=== PATIENT | female | born 1975 | race Caucasian/White ===

== ENCOUNTER 2017-02-01 09:29 | Outpatient (CLI) | payer BC ==
[~2017-02-01] VITALS: Ht 154.9 cm; Wt 82.1 kg
[~2017-02-01 09:29] MED LIST changes: -ACET-2650 PO; -AMPH15TA PO; -BUPR150T7 PO; -CHOL500050 PO; -CYCL10TA9 PO; -DULO60CA58 PO; -HYDR-3812 PO; -LEVO150T6 PO; -LORA-404 PO; -ONDN4T PO; -OXYC-471 PO
[2017-02-01 09:40] VITALS: BP 128/88
[2017-02-01] MEDS ORDERED: LEVO150T6 PO (12:30)
[2017-02-01] MEDS ORDERED: OXYC-471 PO (12:30)
[2017-02-01] MEDS ORDERED: CHOL500050 PO (12:36)
[2017-02-01] MEDS ORDERED: DULO60CA58 PO (12:36)
[2017-02-01] MEDS ORDERED: BUPR150T7 PO (12:36)
[2017-02-01] MEDS ORDERED: CYCL10TA9 PO (12:36)
[2017-02-01] MEDS ORDERED: AMPH15TA PO (12:36)
[2017-02-01] MEDS ORDERED: LORA-404 PO (12:36)
[2017-02-01] MEDS ORDERED: ACET-2650 PO (12:36)
[2017-02-01] MEDS ORDERED: ONDN4T PO (12:36)
== END 2017-02-01 10:20 | disposition home or self-care (01) ==
LOC: PREOP 09:29
PROVIDERS: ATTEND Podiatrist Foot & Ankle Surgery
DX: Z01.818 Encounter for other preprocedural examination (principal); Z11.2 Encounter for screening for other bacterial diseases; M76.71 Peroneal tendinitis, right leg
CPT/HCPCS: 87081

== ENCOUNTER → 2017-02-01 | Outpatient (CLI) | payer BC ==
[~2017-02-01] MED LIST: ACET-2650 PO; ALBU8.5H4 INH; AMPH15TA PO; ASCORBIC ACID PO; BIOTIN PO; BUPR150T7 PO; CELE100C PO; CHOL100055 PO; CHOL500044 PO; CHOL500050 PO; CYCL10TA9 PO; DIPH25CA79 PO; DULO60CA58 PO; FOLI1TAB24 PO; HYDR-3062 PO; HYDR-3812 PO; HYDR15SO8 PO; LEVO125T6 PO; LEVO150T6 PO; LIDO700A6 TP; LISD70CA3 PO; LORA-404 PO; MAGN100T6 PO; METH2.5T PO; MONT10TA21 PO; MULT-974 PO; NF-MAG64T PO; NITR0.4T39 SL; ONDN4T PO; OXYC-197 PO; OXYC-464 PO; OXYC-471 PO; POLY17PO6 PO; POTA10CA43 PO; PROZASIN PO; SUMA100T2 PO; TRAM50TA2 PO; TYLENOL ARTHRITIS PO; VENL150C PO; [UNRECOGNIZED DRUG - OTHER] PO
[2017-02-01 10:20] LABS: BASOPHILS % (AUTO) 0 % (0-10); EOSINOPHILS # (AUTO) 0.1 10^3/uL (0.0-0.3); EOSINOPHILS % (AUTO) 1 % (0-10); LYMPHOCYTES # (AUTO) 1.7 X 10^3 (1.0-4.0); LYMPHOCYTES % (AUTO) 26 % (12-44); MEAN CORPUSCULAR HEMOGLOBIN 32 PG (25-34); MEAN CORPUSCULAR HGB CONC 33 G/DL (32-36); MEAN CORPUSCULAR VOLUME 95 FL (80-99); MEAN PLATELET VOLUME 8.3 FL (7.4-10.4); MONOCYTES # (AUTO) 1.1 X 10^3 (0.0-1.0); MONOCYTES % (AUTO) 17 % (0-12); NEUTROPHILS # (AUTO) 3.6 X 10^3 (1.8-7.8); NEUTROPHILS % (AUTO) 56 % (42-75); PLATELET COUNT 447 10^3/uL (130-400); RED BLOOD COUNT 4.19 10^6/uL (4.35-5.85); RED CELL DISTRIBUTION WIDTH 13.1 % (10.0-14.5); WHITE BLOOD COUNT 6.4 10^3/uL (4.3-11.0)
[2017-02-01 10:38] LABS: CREATININE SERUM 0.74 MG/DL (0.60-1.30)
== END ==
LOC: LAB 09:58
PROVIDERS: ATTEND Specialist
DX: M35.9 Systemic involvement of connective tissue, unspecified (principal)
CPT/HCPCS: 36415; 82565; 84460; 85025

== ENCOUNTER 2017-02-24 09:06 | Day surgery (SDC) | payer BC ==
[~2017-02-24] VITALS: Ht 154.9 cm; Wt 82.1 kg
[~2017-02-24 09:06] MED LIST changes: +ACET-2650 PO; +AMPH15TA PO; +BUPR150T7 PO; +CHOL500050 PO; +CYCL10TA9 PO; +DULO60CA58 PO; +LACTATED RINGERS 1,000 ML IV PRN; +LEVO150T6 PO; +LORA-404 PO; +ONDN4T PO; +OXYC-471 PO
[2017-02-24] MEDS ORDERED: proPOfol 200 MG/20 ML (DIPRIVAN) VIAL IV ONE (09:20)
[2017-02-24] MEDS ORDERED: LACTATED RINGERS 1,000 ML IV ONE (09:20)
[2017-02-24] MEDS ORDERED: SEVOFLURANE (ULTANE) 15 ML INHAL SOLN ONE ×6 (09:20→11:08)
[2017-02-24] MEDS ORDERED: LIDOCAINE PF 2% 10 ML (XYLOCAINE) AMP ONE (09:20)
[2017-02-24] MEDS ORDERED: MIDAZOLAM 2 MG/2 ML (VERSED) VIAL ONE (09:21)
[2017-02-24] MEDS ORDERED: fentaNYL INJECTION 100 MCG/2 ML AMP ONE (09:21)
[2017-02-24 09:30] VITALS: BP 140/87
[2017-02-24] MEDS ORDERED: FAMOTIDINE 20MG/2ML IV (PEPCID) ONE (09:33)
[2017-02-24] MEDS ORDERED: ONDANSETRON 4 MG/2 ML (SDV) Z0FRAN ONE ×2 (09:33→11:09)
[2017-02-24] MEDS ORDERED: CLINDAMYCIN 600 MG/50 ML IVPB 50 ML IV ONE ×2 (09:35→09:45)
[2017-02-24] MEDS ORDERED: BUPIVACAINE 0.5% 30 ML (SENSORCAINE) VIAL ONE (09:39)
[2017-02-24] MEDS ORDERED: LIDOCAINE 1% INJ 20 ML (XYLOCAINE) VIAL ONE (09:40)
--- NOTE | 2017-02-24 09:41 | Progress Note-Pre Operative ---
Pre-Operative Progress Note H&P Reviewed The H&P was reviewed, patient examined and no changes noted. Date H&P Reviewed: February 24, 2017 Time H&P Reviewed: 09:40 Pre-Operative Diagnosis: Peroneal tendonosis, right MELISSA BREAUX DPM February 24, 2017 9:41 am
[2017-02-24] MEDS ORDERED: SCOPOLAMINE 1.5 MG (TRANSDERM-SCOP) PATCH TOP ONE (09:45)
[2017-02-24] MEDS ORDERED: FAMOTIDINE 20MG/2ML IV (PEPCID) IV ONE (09:45)
[2017-02-24] MEDS ORDERED: ONDANSETRON 4 MG/2 ML (SDV) Z0FRAN IV ONE (09:45)
[2017-02-24] MEDS ORDERED: DEXAMETHASONE PF 10 MG/ML (DECADRON) VIAL ONE ×2 (10:34→11:09)
[2017-02-24] MEDS ORDERED: SUCCINYLCHOLINE INJ 100 MG/5 ML SYR ONE (11:09)
[2017-02-24] MEDS ORDERED: LACTATED RINGERS 1,000 ML IV SCH (11:19)
--- NOTE | 2017-02-24 11:19 | Progress Note-Post Operative ---
Post-Operative Progess Note Surgeon (s)/Bartender Manager (s) Surgeon MELISSA BREAUX DPM Bartender Manager: none Pre-Operative Diagnosis Peroneal tendonosis, right Post-Operative Diagnosis Same Post-Op Procedure Note Date of Procedure: February 24, 2017 Name of Procedure Performed: Exploration of peroneal tendons right Description of the Procedure: opened tendon sheath, right Findings of the Procedure Minimal tenosynovitis, no tendon rent Anesthesia Type General Estimated blood loss (mL): Minimal Specimen(s) collected/removed None MELISSA BREAUX DPM February 24, 2017 11:19 am
[2017-02-24] MEDS ORDERED: morphine INJ 10 MG/ML 1ML (SYR OR VIAL) IVP PRN (11:30)
[2017-02-24] MEDS ORDERED: MEPERIDINE (DEMEROL) INJ 50 MG/ML IVP PRN (11:30)
[2017-02-24] MEDS ORDERED: ONDANSETRON 4 MG/2 ML (SDV) Z0FRAN IVP PRN ×2 (11:30)
[2017-02-24] MEDS ORDERED: HYDROcodone/APAP 5 MG/325 MG (LORTAB) TAB PO PRN (11:30)
[2017-02-24 12:15] VITALS: BP 156/75
[2017-02-24 13:40] VITALS: BP 156/75
[2017-02-24] MEDS ORDERED: HYDR-3812 PO (13:41)
--- NOTE | 2017-02-25 03:49 | OPERATIVE REPORT ---
DATE OF SERVICE: 02/24/2017 PREOPERATIVE DIAGNOSIS: Peroneal tendinosis, right foot. POSTOPERATIVE DIAGNOSIS: Tenosynovitis to the right peroneal tendons. PROCEDURE: Exploration, synovectomy and irrigation of peroneal tendons, right foot. WOUND CLASS: Clean. ANESTHESIA: General. HEMOSTASIS: Pneumatic thigh tourniquet at 300 mmHg. INDICATIONS: This 42-year-old female presents complaining of painful tendons to the right lower extremity. Conservative therapy is met with unsatisfactory results and the patient is agreeable to surgical intervention after risks and complications were discussed at length. No aberrant guarantees were extended to the patient and she is willing to proceed. PROCEDURE: The patient was brought back to the operating table and placed in a secure supine position. General anesthetic was then induced. A proper timeout was performed. The patient was placed on a beanbag in a lateral position with the lateral aspect of the right lower extremity exposed superiorly. A pneumatic thigh tourniquet was placed on the right lower extremity with several layers of padding. The right foot was then prepped and draped in a normal sterile manner. The right foot was then elevated, allowed to exsanguinate; after which the tourniquet was inflated to 300 mmHg. Attention was then directed to the lateral aspect of the left foot and lateral malleolus where a 7 cm curvilinear incision was created from the base of the fifth metatarsal extending to the inferior and posterior aspect of the lateral malleolus at the maximal point of tenderness identified preoperatively. The incisions were deepened in standard plane taking great care to identify and retract all vital neurovascular structures. All the necessary blood vessels were cauterized as encountered. The incision was deepened down to the peroneal retinaculum, which was incised sharply after it was tented, with the use of surgical scissors. The peroneal sheath was then tented with the same technique with great care not to traumatize the underlying tendon structures. Clear fluid was noted within the tendon sheath at its distal and inferior aspect to the lateral malleolus. There were some erythematous areas consistent with tenosynovitis to the peroneus longus tendon posterior to the lateral malleolus and extended slightly around the inferior aspect. This area was flushed with copious amounts of normal saline. Minimal debridement was necessary. The tendons were inspected thoroughly and found to have no rent or tear. The consistency of the tendons is within normal limits. No bulbous areas were identified in the area of surgical exploration. The tendons were then flushed once again with copious amounts of normal saline and closure was then performed in layers. The deep layers were reapproximated with 3-0 Vicryl with range of motion of the ankle. There was no subluxation of the peroneal tendons. Closure of the subcutaneous tissue was with 4-0 Vicryl. Skin closure was performed with 4-0 Prolene in a horizontal mattress type stitch. Postoperative injection consisted of 15 mL of 0.5% Marcaine injected as a local infusion to the surgical site as well as 10 mg of dexamethasone. Postoperative dressing consisted of betadine-soaked Adaptic, sterile 4 x 4, sterile Kerlix, soft roll and a Coban wrap from the metatarsals to the calf. Once the tourniquet was released, appropriate cap refill time was noted to all digits of the right foot. The patient was transported from the operating room to the recovery area with vital signs stable and vascular status intact to all digits of the right foot. She was given postoperative instructions to be nonweightbearing. She is to pump the ankle dorsally and plantarly but not to do rotations and stress the peroneal tendons at this point. We will see the patient back in 10 days for followup or sooner if necessary. At any time she is to be absolutely nonweightbearing with crutches and use of a CAM walker. Job ID: [id number] DocumentID: [id number] Dictated Date: 02/24/2017 11:29:06 Embedded Hardware Engineer Date: 02/25/2017 03:49:26 Dictated By: SHAQ WORLEY
== END 2017-02-24 13:55 | disposition home or self-care (01) ==
LOC: SDC 09:06
PROVIDERS: ATTEND Podiatrist Foot & Ankle Surgery
DX: M65.871 Other synovitis and tenosynovitis, right ankle and foot (principal); E03.9 Hypothyroidism, unspecified; J45.909 Unspecified asthma, uncomplicated; K21.9 Gastro-esophageal reflux disease without esophagitis; G47.30 Sleep apnea, unspecified; Z79.899 Other long term (current) drug therapy